=== PATIENT | female | born 1955 | race African-American/Black ===

== ENCOUNTER 2016-08-17 17:46 | Emergency (ER) | payer OTHER ==
[2016-08-17 16:39] LABS: INFLUENZA A POS (NEG); INFLUENZA B NEG (NEG)
[~2016-08-17 17:46] MED LIST: NEURONTIN300 MG PO; NO MEDICATIONS; ORUDIS75 M1 DOB; PEN-VEE K PO; PERCOCET 10/31 UDTA1 PO; PERCOCET10 PO; SOD BICARBONATE PO
== END 2016-08-17 18:05 | disposition home or self-care (01) ==
LOC: CED 17:46
DX: J10.1 Influenza due to other identified influenza virus with other respiratory manifestations (principal); J20.0 Acute bronchitis due to Mycoplasma pneumoniae
CPT/HCPCS: 87804; 87880; 96372; 99283; J0561

== ENCOUNTER → 2016-08-27 | Day surgery (SDC) | payer OTHER ==
--- NOTE | ~2016-08-27 | OR ---
Unit #: [id number] #: [id number] Patient: NERY SCHRADER [id number] [address] [place], [place] [address] [id number] O MR#: [id number] NAME: NERY SCHRADER ROOM: Date of Procedure: 08/27/2016 Admission Date: 08/27/2016 Surgeon: Tk Morel M.D. : 1955 Attending Physician: Tk Morel M.D. Referring Physician: Tk Morel M.D. [facility] CENTER OPERATIVE NOTE PROCEDURE PERFORMED Lumbar epidural steroid injection under x-ray guided needle placement with provider administered conscious sedation. PREOPERATIVE DIAGNOSES 1. Acute lumbar radiculitis. 2. Spinal stenosis, lumbosacral spine. 3. Degenerative joint disease, lumbosacral spine. 4. Degenerative disk disease, lumbosacral spine. INDICATIONS FOR PROCEDURE The patient presents today with longstanding history of chronic lumbar radicular pain secondary to her underlying degenerative processes. She is generally fairly well managed medically, but does occasionally require epidural steroid injections for exacerbations, which break through her ongoing continuous conservative management. She states she generally does well with the epidural steroid injections with pain relief 80% to 100% for 6 to 8 weeks. However, she requested if we could potentially refer her to a painter and body work, who provided medical management in addition to procedures and I gave her the names of Denis Soto, Luiz Combs, and Abhijeet Lee and asked her to either contact those individuals directly or to ask for referral from her primary care provider stating that I would gladly send the letter detaching her from this practice if it was required by these individuals. Following this discussion as well as risks and benefits of proceeding today with L4-L5 lumbar epidural steroid injection, the patient agreed this would be the appropriate course of action. DESCRIPTION OF PROCEDURE She was then taken to the operating room, where she was prepped and draped in a sterile manner. Standard monitors were applied. She was sedated with 2 mg of IV Versed initially and required additional 2 mg of IV Versed throughout the duration of procedure. The lumbar epidural space accessed at L4-L5 level using loss of resistance technique and x-ray guidance. Needle placement was confirmed with injection of 2 mL of Omnipaque. There was good superior and inferior flow at this L4-L5 needle placement. Total x-ray time for this L4-L5 needle placement was 4 seconds. Following successful needle confirmation, the patient received an injectate containing 4 mL normal saline and 80 mg of methylprednisolone. She tolerated this procedure well. She was discharged home with followup instructions, which include referral as described above as well as an offer to return to this clinic as early as 12/12/2016 if she would like to return to this clinic and/or felt we could be of further service. Unit #: [id number] #: [id number] Patient: NERY SCHRADER Dictated by... Tk oMrel M.D. JRG/modpritesh TD: 08/28/2016 01:27 JOB #: [id number] CC: Chris Walker M.D. SUR[facility] CENTER OPERATIVE NOTE Page 1 of 1 X Eliot Morel MD X PROCEDURE OPERATIVE NOTE
== END | disposition home or self-care (01) ==
LOC: CCSC 09:01
DX: M47.27 Other spondylosis with radiculopathy, lumbosacral region (principal); M51.17 Intervertebral disc disorders with radiculopathy, lumbosacral region; M48.07 Spinal stenosis, lumbosacral region
CPT/HCPCS: J1040; J2250

== ENCOUNTER → 2016-12-12 | Day surgery (SDC) | payer OTHER ==
--- NOTE | ~2016-12-12 | OR ---
Unit #: [id number] #: [id number] Patient: NERY SCHRADER [id number] [address] [place], [place] [address] [id number] MR#: [id number] NAME: NERY SCHRADER ROOM: Date of Procedure: 12/12/2016 Admission Date: 12/12/2016 Surgeon: Tk Morel M.D. : 1955 Attending Physician: Tk Morel M.D. SUR[facility] CENTER OPERATIVE NOTE PROCEDURE PERFORMED Lumbar epidural steroid injection under x-ray guided needle placement with provider administered conscious sedation. PREOPERATIVE DIAGNOSES 1. Acute lumbar radiculitis. 2. Spinal stenosis, lumbosacral spine. 3. Herniated disk, L5-S1. 4. Degenerative joint disease, lumbosacral spine. 5. Degenerative disk disease, lumbosacral spine. 6. Facet arthrosis, multiple levels lumbosacral spine. INDICATIONS FOR PROCEDURE The patient presents today with longstanding history of chronic lumbar radicular as well as lumbar facet arthralgia pain. She is generally fairly well managed medically with ongoing continuous measures, which included some medications and some self-directed physical activity at our last visit. We were attempting to get this patient referred up because she feels she may will require more aggressive medical management in this office is capable of doing. We have been unable to get her and to see her initial referral, therefore, we giving her the names of Dr. Denis Soto and Dr. Luiz Combs as potential other referral sites for her primary care physician and/or clinic; however, she is currently experiencing exacerbation which had broken through her ongoing treatment. This exacerbations consistent with past exacerbations as well as her x-ray studies. Her past experience with epidural steroid injection has been approximately 60% relief for 6 weeks, which she finds as an unacceptable amount, desires medical management on top of this level relief. DESCRIPTION OF PROCEDURE Following successful discussion regarding this, the patient was taken to the operating room, where she was prepped and draped in a sterile manner. Standard monitors were applied. She refused all forms of sedation and lumbar epidural space accessed at the L5-S1 level using loss of resistance technique and x-ray guidance. Needle placement was confirmed with injection of 2 mL of Omnipaque. Approximately 80% of dye flow was in the inferior direction. Following successful needle placement confirmation at the L5-S1 level, which required an x-ray time of 7 seconds, the patient received an injectate containing 4 mL normal saline and 80 mg of methylprednisolone. She tolerated this procedure well. She was discharged home with followup instructions with an offer to return this clinic as early as 03/27/2017 if we could be of further service to her and she is yet to find an accepting physician for medical management of her Unit #: [id number] #: [id number] Patient: NERY SCHRADER pain. Dictated by... Debbie Cline/marichuy TD: 12/12/2016 13:52 JOB #: [id number] CC: Chris Walker M.D. SUR[facility] CENTER OPERATIVE NOTE Page 1 of 1 X Eliot Morel MD X PROCEDURE OPERATIVE NOTE
== END | disposition home or self-care (01) ==
LOC: CCSC 11:08
DX: G89.29 Other chronic pain (principal); M51.17 Intervertebral disc disorders with radiculopathy, lumbosacral region; M47.27 Other spondylosis with radiculopathy, lumbosacral region; M48.07 Spinal stenosis, lumbosacral region
CPT/HCPCS: J1040; J2250